=== PATIENT | male | born 1970 | race African-American/Black ===

== ENCOUNTER 2017-05-11 06:02 | Emergency (ER) | payer SELFPAY ==
[2017-05-11] MEDS ORDERED: Famotidine 20 MG TAB ONE (06:50)
[2017-05-11] MEDS ORDERED: Lidocaine Viscous Sol 2% 15 ml UD Cup ONE (06:51)
[2017-05-11] MEDS ORDERED: Mag-Al 1200 mg/1200 mg/30 ML UDCUP ONE (06:51)
[2017-05-11 06:55] LABS: Hemoglobin 14.2 g/dL (14.0-18.0); Mean Corpuscular HGB CONC 31.6 g/dL (32.0-36.0); Mean Corpuscular Hemoglobin 32.9 pg (27.0-31.0); Mean Platelet Volume 7.5 fL (7.4-10.4); Platelet Count 190 thou/uL (130-400); RBC Distribution Width 11.8 % (11.5-14.5); Red Blood Cell (RBC) Count 4.31 mill/uL (4.70-6.10); White Blood Cell (WBC) Count 8.3 thou/uL (4.8-10.8)
[2017-05-11 07:10] LABS: ALT (SGPT) 95 U/L (8-55); AST (SGOT) 94 U/L (5-34); Albumin 3.8 g/dL (3.5-5.0); Alkaline Phosphatase 108 U/L (40-150); Anion Gap 11 mmol/L (10-20); BUN (Urea Nitrogen) 13 mg/dL (8.9-20.6); Bilirubin, Total 0.9 mg/dL (0.2-1.2); Calc. Creatinine Clearance 0 mL/min (70-130); Calcium 9.5 mg/dL (7.8-10.44); Carbon Dioxide 27 mmol/L (22-29); Chloride 104 mmol/L (98-107); Estimated GFR-MDRD Greater than 90; Glucose 86 mg/dL (70-105); Lipase 38 U/L (8-78); Potassium 4.1 mmol/L (3.5-5.1); Protein, Total 6.8 g/dL (6.0-8.3); Sodium 138 mmol/L (136-145)
[2017-05-11 07:19] LABS: Eosinophils 1 % (0-10); Lymphocytes 42 % (21-51); MDiff Complete? YES; Monocytes 7 % (0-10); Neutrophil 47 % (42-75); PLT Morphology Comment Appears Adequate; Reactive Lymphocytes 3 % (0-10)
--- NOTE | 2017-05-11 08:15 | ULT ---
RIGHT UPPER QUADRANT ULTRASOUND: INDICATION: Right upper quadrant pain. FINDINGS: There is a small 1 cm oval hyperechoic lesion seen within the central aspect of the right hepatic lob e which may reflect a tiny hemangioma. The liver is otherwise heterogeneous in appearance. The gallbladder demonstrates no intraluminal stones. No sonographic Logan's sign is reported. Comm on bile duct measures 5.2 mm. Visualized aspects of the pancreas are unremarkable. The right kidney measured 10.2 x 4 x 4.3 cm. IMPRESSION: 1. Heterogeneous appearing liver may reflect changes of underlying chronic liver disease. Followup is recommended. 2. Small focal hyperechoic lesion is seen within the central aspect of the right hepatic lobe is non specific and may reflect a small hemangioma or area of fatty infiltration. If indicated, followup CT or MR of the abdomen utilizing hemangioma protocol may be helpful for additional characterization. The patient has no history of chronic liver disease, a followup 3-6 months may be helpful to document stability. 3. No additional acute sonographic abnormality is seen within the right upper quadrant of the abdome n. POS: [facility]
== END 2017-05-11 08:13 | disposition home or self-care (01) ==
LOC: ERS 06:02
DX: R10.13 Epigastric pain (principal); F17.210 Nicotine dependence, cigarettes, uncomplicated; Z79.899 Other long term (current) drug therapy
CPT/HCPCS: 36415; 76705; 80053; 83690; 85025